=== PATIENT | female | born 1990 | race Caucasian/White ===

== ENCOUNTER 2017-06-29 06:39 | Emergency (ER) | payer BC ==
[2017-06-29 07:02] VITALS: BP 108/65
--- NOTE | 2017-06-29 07:07 | EDM.PDOC ---
ED HPI GENERAL MEDICAL PROBLEM - General Chief Complaint: Abdominal Pain Stated Complaint: ABDOMINAL PAIN/19 WKS PG Time Seen by Provider: 06/29/17 07:06 - History of Present Illness INITIAL COMMENTS - FREE TEXT/NARRATIVE: 26-year-old female presents emergency room with abdominal pain. She is 19 weeks by history. Patient had abdominal pain started unprovoked around midnight. She got up try to go to the bathroom with no success. She describes the pain is crampy in nature. She has associated nausea no vomiting. She has not had any fevers chills. She has not had any burning or frequency with urination. She awoke again around 5 AM had the same pain. With associated nausea. The pain is crampy in nature. The patient has not had any unusual vaginal discharge. No burning or frequency of urination. Patient is a 2 para 1. She gets her care in [place]. Past surgical history is significant for an appendectomy at age 12. 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 Denies: Fever, Chills HEENT: Reports: No Symptoms Respiratory: Reports: No Symptoms Cardiovascular: Reports: No Symptoms GI/Abdominal: Reports: Abdominal Pain, Nausea, Other (The patient isn't sure if she is having problems constipation at this point). Denies: Diarrhea, Vomiting : Reports: No Symptoms Musculoskeletal: Reports: No Symptoms Skin: Reports: No Symptoms Neurological: Reports: No Symptoms Psychiatric: Reports: No Symptoms ED EXAM, GI/ABD - Physical Exam Exam: See Below Exam Limited By: No Limitations General Appearance: Alert, No Apparent Distress Head: Atraumatic, Normocephalic Neck: Normal Inspection, Supple, Non-Tender, Full Range of Motion Respiratory/Chest: No Respiratory Distress, Lungs Clear, Normal Breath Sounds Cardiovascular: Normal Peripheral Pulses, Regular Rate, Rhythm, No Edema GI/Abdominal Exam: Normal Bowel Sounds, Soft, Other (Patient has lower abdominal tenderness worse in the left compared to the right. No rigidity no rebound or guarding. Fundus palpates to dates the pain seems to be more lateral then interuterine. heart tones were audible by nursing at 150 bpm by Doppler). No: Guarding, Rigid, Rebound Course - Vital Signs Last Recorded V/S: Last Vital Signs Temp 36.9 C 06/29/17 06:59 Pulse 86 06/29/17 06:59 Resp 16 06/29/17 06:59 BP 108/65 06/29/17 06:59 Pulse Ox 100 06/29/17 06:59 - Orders/Labs/Meds Orders: Active Orders 24 hr Category Date Time Status CULTURE URINE [RM] Stat Lab 06/29/17 08:30 Received Labs: Laboratory Tests 06/29/17 06/29/17 06/29/17 Range/Units 07:20 07:20 07:20 WBC 9.70 (3.98-10.04) K/mm3 RBC 4.00 (3.98-5.22) M/mm3 Hgb 11.6 (11.2-15.7) gm/L Hct 33.7 L (34.1-44.9) % MCV 84.3 (79.4-94.8) fl MCH 29.0 (25.6-32.2) pg MCHC 34.4 (32.2-35.5) g/dl RDW Std Deviation 43.0 (36.4-46.3) fL Plt Count 239 (182-369) K/mm3 MPV 9.0 L (9.4-12.3) fl Neutrophils % (Manual) 38 L (40-60) % Band Neutrophils % 0 (0-10) % Lymphocytes % (Manual) 53 H (20-40) % Atypical Lymphs % 0 % Monocytes % (Manual) 8 (2-10) % Eosinophils % (Manual) 1 (0.7-5.8) % Basophils % (Manual) 0 L (0.1-1.2) Platelet Estimate Adequate RBC Morph Comment Normal Sodium 137 (136-145) mEq/L Potassium 3.8 (3.5-5.1) mEq/L Chloride 103 (98-107) mEq/L Carbon Dioxide 24 (21-32) mEq/L Anion Gap 13.8 (5-15) BUN 8 (7-18) mg/dL Creatinine 0.4 L (0.55-1.02) mg/dL Est Cr Clr Drug Dosing 213.11 mL/min Estimated GFR (MDRD) > 60 (>60) mL/min BUN/Creatinine Ratio 20.0 H (14-18) Glucose 89 (74-106) mg/dL Calcium 8.3 L (8.5-10.1) mg/dL Total Bilirubin 0.2 (0.2-1.0) mg/dL AST 53 H (15-37) U/L ALT 78 H (14-59) U/L Alkaline Phosphatase 42 L (46-116) U/L C-Reactive Protein 0.6 (<1.0) mg/dL Total Protein 7.0 (6.4-8.2) g/dl Albumin 3.0 L (3.4-5.0) g/dl Globulin 4.0 gm/dL Albumin/Globulin Ratio 0.8 L (1-2) Lipase 160 (73-393) U/L HCG, Quant 7672.0 mIU/mL Urine Color (Yellow) Urine Appearance (Clear) Urine pH (5.0-8.0) Ur Specific Chapman (1.005-1.030) Urine Protein (Negative) Urine Glucose (UA) (Negative) Urine Ketones (Negative) Urine Occult Blood (Negative) Urine Nitrite (Negative) Urine Bilirubin (Negative) Urine Urobilinogen (0.2-1.0) Ur Leukocyte Esterase (Negative) Urine RBC (0-5) /hpf Urine WBC (0-5) /hpf Ur Epithelial Cells (0-5) /hpf Urine Bacteria (FEW) /hpf Urine Mucus (FEW) /hpf Blood Type Gel Antibody Screen 06/29/17 06/29/17 Range/Units 07:20 08:30 WBC (3.98-10.04) K/mm3 RBC (3.98-5.22) M/mm3 Hgb (11.2-15.7) gm/L Hct (34.1-44.9) % MCV (79.4-94.8) fl MCH (25.6-32.2) pg MCHC (32.2-35.5) g/dl RDW Std Deviation (36.4-46.3) fL Plt Count (182-369) K/mm3 MPV (9.4-12.3) fl Neutrophils % (Manual) (40-60) % Band Neutrophils % (0-10) % Lymphocytes % (Manual) (20-40) % Atypical Lymphs % % Monocytes % (Manual) (2-10) % Eosinophils % (Manual) (0.7-5.8) % Basophils % (Manual) (0.1-1.2) Platelet Estimate RBC Morph Comment Sodium (136-145) mEq/L Potassium (3.5-5.1) mEq/L Chloride (98-107) mEq/L Carbon Dioxide (21-32) mEq/L Anion Gap (5-15) BUN (7-18) mg/dL Creatinine (0.55-1.02) mg/dL Est Cr Clr Drug Dosing mL/min Estimated GFR (MDRD) (>60) mL/min BUN/Creatinine Ratio (14-18) Glucose (74-106) mg/dL Calcium (8.5-10.1) mg/dL Total Bilirubin (0.2-1.0) mg/dL AST (15-37) U/L ALT (14-59) U/L Alkaline Phosphatase (46-116) U/L C-Reactive Protein (<1.0) mg/dL Total Protein (6.4-8.2) g/dl Albumin (3.4-5.0) g/dl Globulin gm/dL Albumin/Globulin Ratio (1-2) Lipase (73-393) U/L HCG, Quant mIU/mL Urine Color Yellow (Yellow) Urine Appearance Clear (Clear) Urine pH 8.0 (5.0-8.0) Ur Specific Chapman 1.015 (1.005-1.030) Urine Protein Negative (Negative) Urine Glucose (UA) Negative (Negative) Urine Ketones Negative (Negative) Urine Occult Blood Negative (Negative) Urine Nitrite Negative (Negative) Urine Bilirubin Negative (Negative) Urine Urobilinogen 0.2 (0.2-1.0) Ur Leukocyte Esterase Trace H (Negative) Urine RBC Not seen (0-5) /hpf Urine WBC 0-5 (0-5) /hpf Ur Epithelial Cells 0-5 (0-5) /hpf Urine Bacteria Many H (FEW) /hpf Urine Mucus Few (FEW) /hpf Blood Type A NEGATIVE Gel Antibody Screen Negative Meds: Medications Discontinued Medications Generic Name Dose Route Start Last Admin Trade Name Freq PRN Reason Stop Dose Admin Lactated Ringer's 1,000 mls @ 999 mls/hr 06/29/17 07:14 06/29/17 07:26 Ringers, Lactated IV 06/29/17 08:14 999 mls/hr .BOLUS ONE Administration - Re-Assessments/Exams Free Text/Narrative Re-Assessment/Exam: 06/29/17 09:45 ultrasound is consistent with dates, 18.4-19 weeks. heart tones 156 bpm cervical length 3.3 cm. Labs nondiagnostic more of a lymphocytic shift slight elevation of her transaminases negative proteinuria. At this point Dr. Pantoja did get back to us reviewed her physical findings ultrasound report and labs. It would be unlikely to have a HELLP syndrome developing. Urinalysis is suggestive of a possible early UTI we'll start her on Macrobid. Patient understands in no uncertain terms return to the emergency room with any questions or problems she'll be started on Macrobid culture pending Departure - Departure Time of Disposition: 09:56 Disposition: Home, Self-Care 01 Clinical Impression: Abdominal pain of unknown cause, UTI (urinary tract infection), Second trimester - Discharge Information Prescriptions: Nitrofurantoin Monohyd/M-Cryst [Macrobid 100 mg Capsule] 100 mg PO Q12H #14 capsule Instructions: Abdominal Pain, Adult, Urinary Tract Infection, Adult Referrals: Adelaide Christianson MD [Primary Care Provider] - Forms: ED Department Discharge Additional Instructions: Return to the emergency room with any questions problems worsening symptoms. Follow-up with your regular physician tomorrow or . Fluid and soft diet, push fluids. Drink enough fluids that your voiding every hour to hour and a half while awake. - My Orders Last 24 Hours: My Active Orders 06/29/17 08:30 CULTURE URINE [RM] Stat - Assessment/Plan Last 24 Hours: My Active Orders 06/29/17 08:30 CULTURE URINE [] Stat
[2017-06-29] MEDS ORDERED: Lactated Ringers 1,000 ML IV ONE (07:14)
--- NOTE | 2017-06-29 08:34 | US ---
Limited obstetrical ultrasound: Multiple real-time images were obtained. Comparison: No prior obstetrical ultrasound for current . Dates: LMP: LMP given as 02/15/17, TRE 11/22/17, gestational age 19 weeks 1 day Current ultrasound: TRE 11/25/17, gestational age 18 weeks 5 days presentation: Cephalic Placenta: Anterior with no findings of placenta previa or abruption. Amniotic fluid: GENESIS 9.54 cm Maternal adnexa: Within normal limits Measurements: BPD: 4.1 cm - 18 weeks 4 days Head circumference: 15.54 cm - 18 weeks 4 days Abdominal circumference: 13.46 cm - 19 weeks 0 days Femur length: 2.78 cm - 18 weeks 4 days Estimated weight: 253 g (0 lbs. 9 oz.), estimated weight at the 44th percentile for age by current ultrasound Heart rate: 156 BPM Cervical length: 3.3 cm Other findings: Additional imaging was obtained in area described as area of patient's pain which shows bowel without other abnormality. Impression: 1. Single intrauterine fetus. Dates as noted above. 2. No complicating process is seen by ultrasound at this time. Note: No anatomic survey was performed
== END 2017-06-29 10:09 | disposition home or self-care (01) ==
LOC: JD.ED 06:39
DX: O23.42 Unspecified infection of urinary tract in pregnancy, second trimester (principal); Z3A.18 18 weeks gestation of pregnancy; Z87.891 Personal history of nicotine dependence
CPT/HCPCS: 36415; 76815; 80053; 81001; 83690; 84702; 85025; 86140; 86850; 86900; 86901; 87086; 96360; 99284; J7120; 87088; 99283

== ENCOUNTER 2019-05-18 06:50 | Inpatient (IN) | payer BC ==
[~2019-05-18 06:50] MED LIST: Bupivacaine 0.25% 10 ML SDV ONE
[2019-05-18] MEDS ORDERED: Nalbuphine 10 MG/ML Syringe IVPUSH PRN (06:59)
[2019-05-18] MEDS ORDERED: Sodium Chloride 0.9% 10 ML Syringe FLUSH PRN (06:59)
[2019-05-18] MEDS ORDERED: Ondansetron 4 MG/2 ML SDV IVPUSH PRN ×2 (06:59→12:02)
[2019-05-18] MEDS ORDERED: Oxytocin/Lactated Ringers 10 UNIT/1,000 ML BAG IV SCH ×2 (07:00)
--- NOTE | 2019-05-18 07:03 | PCM.LDHP ---
L&D History of Present Illness - General Date of Service: 05/18/19 Admit Problem/Dx: Patient Status Order with Admit Dx/Problem 05/18/19 07:00 Patient Status [ADT] Routine Admission Diagnosis/Problem Admission Diagnosis/Problem Normal in third trimester Source of Information: Patient History Limitations: Reports: No Limitations - History of Present Illness Introduction:: Patient is a 28 y/o at 40 5/7 wks who presents for IOL. Doing well today. Notes good FM. 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: 2 LMP (Approximate): - Past Surgical History GI Surgical History: Reports: Appendectomy Social & Family History - Tobacco Use Smoking Status *Q: Former Smoker - Alcohol Use Alcohol Use History: No - Recreational Drug Use Recreational Drug Use: No H&P Review of Systems - Review of Systems: Review Of Systems: See Below General: Reports: No Symptoms Pulmonary: Reports: No Symptoms Cardiovascular: Reports: No Symptoms Gastrointestinal: Reports: No Symptoms Genitourinary: Reports: No Symptoms Musculoskeletal: Reports: No Symptoms Skin: Reports: No Symptoms Psychiatric: Reports: No Symptoms Neurological: Reports: No Symptoms L&D Exam - Exam Exam: See Below - OB Specific Contraction Intensity: Irritability Movement: Active Heart Tones: Present Heart Tones per Min: 130 Heart Rate (FHR) Variability: Moderate (6-25 bmp) Presentation: Vertex - Cronin Score Cronin Score Cervix Position: Midposition Cronin Score Consistency: Soft Cronin Score Effacement: 51-70% Cronin Score Dilation: 3-4 cm Cronin Score Infant's Station: -2 Cronin Score Total: 8 - Exam General: Alert, Oriented, Cooperative Lungs: Clear to Auscultation, Normal Respiratory Effort Cardiovascular: Regular Rate, Regular Rhythm GI/Abdominal Exam: Soft, Non-Tender Genitourinary: Normal external exam Extremities: Normal Inspection Skin: Warm, Dry, Intact - Patient Data Result Diagrams: 05/18/19 08:00 - Problem List (1) Post-dates SNOMED Code(s): 84082041 ICD Code: O48.0 - POST-TERM Status: Acute Current Visit: Yes Qualifiers: Post-term type: 40-42 weeks gestation Qualified Code(s): O48.0 - Post-term (2) Rh negative state in antepartum period SNOMED Code(s): 788485320 ICD Code: O26.899 - OTH RELATED CONDITIONS, UNSPECIFIED TRIMESTER; Z67.91 - UNSPECIFIED BLOOD TYPE, RH NEGATIVE Status: Acute Current Visit: Yes Problem List Initiated/Reviewed/Updated: Yes Orders Last 24hrs: Active Orders 24 hr Category Date Time Status Patient Status [ADT] Routine ADT 05/18/19 07:00 Ordered Activity as Tolerated [RC] PFP Care 05/18/19 07:00 Ordered Communication Order [RC] ASDIRECTED Care 05/18/19 07:00 Ordered Communication Order [RC] ASDIRECTED Care 05/18/19 07:00 Ordered Communication Order [RC] ASDIRECTED Care 05/18/19 07:00 Ordered Heart Tones [RC] ASDIRECTED Care 05/18/19 07:00 Ordered Monitoring [RC] INTERMITTENT Care 05/18/19 07:00 Ordered Non Stress Test [RC] PER UNIT ROUTINE Care 05/18/19 07:00 Ordered Notify Provider [RC] ASDIRECTED Care 05/18/19 07:00 Ordered Notify Provider [RC] PRN Care 05/18/19 07:00 Ordered Peripheral IV Care [RC] . DIRECTED Care 05/18/19 07:00 Ordered Vaginal Exam [RC] ASDIRECTED Care 05/18/19 07:00 Ordered Vital Signs [RC] ASDIRECTED Care 05/18/19 07:00 Ordered Regular Diet [DIET] Diet 05/18/19 Breakfast Ordered CBC W/O DIFF,HEMOGRAM [HEME] Routine Lab 05/18/19 06:59 Ordered RAPID PLASMA REAGIN,RPR [CHEM] Routine Lab 05/18/19 07:00 Ordered TYPE AND SCREEN [BBK] Routine Lab 05/18/19 06:59 Ordered Lactated Ringers [Ringers, Lactated] 1,000 ml Med 05/18/19 07:00 Ordered IV ASDIRECTED Nalbuphine [Nubain] Med 05/18/19 06:59 Ordered 10 mg IVPUSH Q2H PRN Ondansetron [Zofran] Med 05/18/19 06:59 Ordered 4 mg IVPUSH Q4H PRN Oxytocin/Lactated Ringers [Pitocin in LR 10 Units/1,000 Med 05/18/19 07:00 Ordered ML] 10 unit in 1,000 ml IV .CONTINUOUS Oxytocin/Lactated Ringers [Pitocin in LR 10 Units/1,000 Med 05/18/19 07:00 Ordered ML] 10 unit in 1,000 ml IV TITRATE Sodium Chloride 0.9% [Saline Flush] Med 05/18/19 06:59 Ordered 10 ml FLUSH ASDIRECTED PRN Electronic Heart Tones Ext w TOCO [WOMSER] Oth 05/18/19 07:00 Ordered Routine Electronic Heart Tones Internal [WOMSER] Per Unit Ot 05/18/19 07:00 Ordered Routine Peripheral IV Insertion Adult [OM.PC] Routine Ot 05/18/19 07:00 Ordered Assessment/Plan Comment:: 28 y/o at 40 5/7 wks presents for IOL * Labs done * GBS negative, no need for antibiotics * Pitocin to be started, AROM when able * Pain management per patient preference * Anticipate
[2019-05-18] MEDS: Lactated Ringers 1,000 ML IV SCH ×2 (07:30→12:26)
[2019-05-18] MEDS ORDERED: fentaNYL/Bupivacaine/NS 2 MCG-0.125% 250 ML EPIDUR PRN (12:02)
[2019-05-18] MEDS ORDERED: fentaNYL 100 MCG/2 ML SDV EPIDUR PRN (12:02)
[2019-05-18] MEDS ORDERED: ePHEDrine 50 MG/ML SDV IVPUSH PRN (12:02)
--- NOTE | 2019-05-18 12:05 | PCM.PREANE ---
Preanesthetic Assessment - Anesthesia/Transfusion/Family Hx Anesthesia History: Prior Anesthesia Without Reaction Family History of Anesthesia Reaction: No Transfusion History: No Prior Transfusion(s) Intubation History: Unknown - Review of Systems General: No Symptoms Pulmonary: No Symptoms Cardiovascular: No Symptoms Gastrointestinal: No Symptoms (GERD with ), Constipation Neurological: No Symptoms Other: Reports: Easy Bruising, Depression, Anxiety - Physical Assessment NPO Status Date: 05/18/19 NPO Status Time: 10:00 Vital Signs: Last Vital Signs Temp 36.4 C 05/18/19 07:00 Pulse 85 05/18/19 08:30 Resp 16 05/18/19 07:00 BP 86/68 L 05/18/19 08:30 Pulse Ox Height: 1.75 m Weight: 75.296 kg ASA Class: 2 Mental Status: Alert & Oriented x3 Airway Class: Mallampati = 2 Dentition: Reports: Normal Dentition, Caries Thyro-Mental Finger Breadths: 3 Mouth Opening Finger Breadths: 3 ROM/Head Extension: Full Lungs: Clear to Auscultation, Normal Respiratory Effort Cardiovascular: Regular Rate, Regular Rhythm, No Murmurs - Lab Values: Laboratory Last Values WBC 8.07 K/mm3 (3.98-10.04) 05/18/19 08:00 RBC 4.18 M/mm3 (3.98-5.22) 05/18/19 08:00 Hgb 12.3 gm/dl (11.2-15.7) 05/18/19 08:00 Hct 36.4 % (34.1-44.9) 05/18/19 08:00 MCV 87.1 fl (79.4-94.8) 05/18/19 08:00 MCH 29.4 pg (25.6-32.2) 05/18/19 08:00 MCHC 33.8 g/dl (32.2-35.5) 05/18/19 08:00 RDW Std Deviation 41.9 fL (36.4-46.3) 05/18/19 08:00 Plt Count 242 K/mm3 (182-369) 05/18/19 08:00 MPV 10.3 fl (9.4-12.3) 05/18/19 08:00 Above labs reviewed and noted and within acceptable ranges to proceed with epidural. - Allergies Allergies/Adverse Reactions: Allergies Allergy/AdvReac Type Severity Reaction Status Date / Time No Known Allergies Allergy Verified 06/29/17 06:59 - Anesthesia Plan Pre-Op Medication Ordered: None - Acknowledgements Anesthesia Type Planned: Epidural Pt an Appropriate Candidate for the Planned Anesthesia: Yes Alternatives and Risks of Anesthesia Discussed w Pt/Guardian: Yes Pt/Guardian Understands and Agrees with Anesthesia Plan: Yes PreAnesthesia Questionnaire - Past Health History Medical/Surgical History: Denies Medical/Surgical History Gastrointestinal History: Reports: None [place] History: Reports: Other OB/BYN History: vaginal delivery - Past Surgical History GI Surgical History: Reports: Appendectomy - SUBSTANCE USE Smoking Status *Q: Former Smoker Tobacco Use Within Last Twelve Months: No Recreational Drug Use History: No - HOME MEDS Home Medications: Home Meds No122/Iron/Folic Acid [ Multi Tablet] 1 tab PO DAILY 09/12/15 [ History] - CURRENT (IN HOUSE) MEDS Current Meds: Current Medications Lactated Ringer's (Ringers, Lactated) 1,000 mls @ 40 mls/hr IV ASDIRECTED LINNETTE Last Admin: 05/18/19 07:30 Dose: 40 mls/hr Oxytocin/Lactated Ringer's (Pitocin In Lr 10 Units/1,000 Ml) 10 unit in 1,000 mls @ 12 mls/hr IV TITRATE LINNETTE; Protocol Last Titration: 05/18/19 10:30 Dose: 10 munits/min, 60 mls/hr Oxytocin/Lactated Ringer's (Pitocin In Lr 10 Units/1,000 Ml) 10 unit in 1,000 mls @ 500 mls/hr IV .CONTINUOUS LINNETTE Nalbuphine HCl (Nubain) 10 mg IVPUSH Q2H PRN PRN Reason: Pain Ondansetron HCl (Zofran) 4 mg IVPUSH Q4H PRN PRN Reason: Nausea/Vomiting Sodium Chloride (Saline Flush) 10 ml FLUSH ASDIRECTED PRN PRN Reason: Keep Vein Open
--- NOTE | 2019-05-18 14:41 | PCM.DEL ---
L & D Note - General Info Date of Service: 05/18/19 - Delivery Note Labor: Induced by ARM, Induced by Oxytocin Delivery Outcome: Livebirth Infant Delivery Method: Spontaneous Vaginal Delivery-Single Infant Delivery Mode: Spontaneous Presentation: Right Occiput Anterior (MARÍA) Nuchal Cord: None Anesthesia Type: Epidural Amniotic Fluid Description: Clear Episiotomy Type: None Laceration: None Placenta: Intact, Spontaneous Cord: 3 Vessels Estimated Blood Loss: 100 Unity: Bulb Syringe, Stimulated, Warmed, Palm Used, Warmer Used Delivery Comments (Free Text/Narrative):: Patient found to be complete and began pushing. With maternal pushing effort head delivered from an MARÍA presentation. No nuchal cord present. With gentle downward traction the shoulders and body delivered. placed on maternal abdomen. Cord clamped and cut. Cord blood obtained. Placenta allowed time to separate and expelled intact. Inspection of the perineum showed no lacerations. - General Info Date of Service: 05/18/19 - Patient Data Vitals - Most Recent: Last Vital Signs Temp 36.4 C 05/18/19 07:00 Pulse 85 05/18/19 08:30 Resp 16 05/18/19 07:00 BP 86/68 L 05/18/19 08:30 Pulse Ox Weight - Most Recent: 75.296 kg - Problem List & Annotations (1) Post-dates SNOMED Code(s): 46611385 Code(s): O48.0 - POST-TERM Status: Acute Current Visit: Yes Qualifiers: Post-term type: 40-42 weeks gestation Qualified Code(s): O48.0 - Post-term (2) Rh negative state in antepartum period SNOMED Code(s): 580925455 Code(s): O26.899 - OTH RELATED CONDITIONS, UNSPECIFIED TRIMESTER; Z67.91 - UNSPECIFIED BLOOD TYPE, RH NEGATIVE Status: Acute Current Visit: Yes (3) Vaginal delivery SNOMED Code(s): 763870259 Code(s): O80 - ENCOUNTER FOR FULL-TERM UNCOMPLICATED DELIVERY Status: Acute Current Visit: Yes - Problem List Review Problem List Initiated/Reviewed/Updated: Yes - My Orders Last 24 Hours: My Active Orders 05/18/19 06:59 Nalbuphine [Nubain] 10 mg IVPUSH Q2H PRN Ondansetron [Zofran] 4 mg IVPUSH Q4H PRN Sodium Chloride 0.9% [Saline Flush] 10 ml FLUSH ASDIRECTED PRN 05/18/19 07:00 Patient Status [ADT] Routine Activity as Tolerated [RC] PFP Communication Order [RC] ASDIRECTED Communication Order [RC] ASDIRECTED Communication Order [RC] ASDIRECTED Heart Tones [RC] ASDIRECTED Monitoring [RC] INTERMITTENT Notify Provider [RC] ASDIRECTED Notify Provider [RC] PRN Vital Signs [RC] ASDIRECTED Lactated Ringers [Ringers, Lactated] 1,000 ml IV ASDIRECTED Oxytocin/Lactated Ringers [Pitocin in LR 10 Units/1,000 ML] 10 unit in 1,000 ml IV .CONTINUOUS Oxytocin/Lactated Ringers [Pitocin in LR 10 Units/1,000 ML] 10 unit in 1,000 ml IV TITRATE Electronic Heart Tones Ext w TOCO [WOMSER] Routine Electronic Heart Tones Internal [WOMSER] Per Unit Routine Peripheral IV Insertion Adult [OM.PC] Routine 05/18/19 07:19 Code Status [Resuscitation Status] Routine 05/18/19 08:00 RAPID PLASMA REAGIN,RPR [CHEM] Routine TYPE AND SCREEN [BBK] Routine 05/18/19 Breakfast Regular Diet [DIET] - Assessment Assessment:: 28 y/o G3 now P3003 PPD#0 from at 40 5/7 wks - Plan Plan:: * Routine cares * Breast feeding * Discharge in 1-2 days
[2019-05-18] MEDS ORDERED: Witch Hazel Medicated Pads 40/Jar TOP PRN (14:58)
[2019-05-18] MEDS ORDERED: Acetaminophen 325 MG Tab PO PRN (14:58)
[2019-05-18] MEDS ORDERED: Docusate Sodium 100 MG Cap PO PRN (14:58)
[2019-05-18] MEDS ORDERED: Benzocaine/Menthol 20%-0.5% Spray 56 GM Canister TOP PRN (14:58)
[2019-05-18] MEDS ORDERED: Ibuprofen 600 MG Tab PO PRN (14:58)
--- NOTE | 2019-05-19 07:42 | PCM.PNPP ---
- General Info Date of Service: 05/19/19 Functional Status: Reports: Pain Controlled, Tolerating Diet, Ambulating, Urinating - Review of Systems General: Reports: No Symptoms Pulmonary: Reports: No Symptoms Cardiovascular: Reports: No Symptoms Gastrointestinal: Reports: No Symptoms Genitourinary: Reports: No Symptoms Musculoskeletal: Reports: No Symptoms Neurological: Reports: No Symptoms - Patient Data Vital Signs - Most Recent: Last Vital Signs Temp 36.4 C 05/18/19 07:00 Pulse 74 05/19/19 03:00 Resp 16 05/19/19 03:00 BP 102/54 L 05/19/19 03:00 Pulse Ox 100 05/19/19 03:00 Weight - Most Recent: 75.296 kg I&O - Last 24 Hours: Intake & Output 05/18/19 05/19/19 05/19/19 22:59 06:59 14:59 Intake Total 60 Balance 60 Lab Results - Last 24 Hours: Laboratory Results - last 24 hr 05/18/19 05/18/19 05/18/19 Range/Units 08:00 08:00 08:00 WBC 8.07 (3.98-10.04) K/mm3 RBC 4.18 (3.98-5.22) M/mm3 Hgb 12.3 (11.2-15.7) gm/dl Hct 36.4 (34.1-44.9) % MCV 87.1 (79.4-94.8) fl MCH 29.4 (25.6-32.2) pg MCHC 33.8 (32.2-35.5) g/dl RDW Std Deviation 41.9 (36.4-46.3) fL Plt Count 242 (182-369) K/mm3 MPV 10.3 (9.4-12.3) fl RPR Non-reactive (NONREACTIVE) Blood Type A NEGATIVE Gel Antibody Screen Negative Med Orders - Current: Current Medications Acetaminophen (Tylenol) 650 mg PO Q4H PRN PRN Reason: mild pain or fever Benzocaine/Menthol (Dermoplast Pain Relief [place]) 0 gm TOP ASDIRECTED PRN PRN Reason: Perineal Comfort Measure Docusate Sodium (Colace) 100 mg PO BID PRN PRN Reason: Constipation Ibuprofen (Motrin) 600 mg PO Q6H PRN PRN Reason: Mild pain or fever Last Admin: 05/18/19 21:56 Dose: 600 mg Witch Lilia (Tucks) 1 pad TOP ASDIRECTED PRN PRN Reason: Perineal Comfort Measure Discontinued Medications Ephedrine Sulfate (Ephedrine Sulfate) 5 mg IVPUSH ASDIRECTED PRN PRN Reason: Hypotension Fentanyl (Sublimaze) 100 mcg EPIDUR Q3H PRN PRN Reason: Pain Last Admin: 05/18/19 12:17 Dose: 100 mcg Fentanyl/Bupivacaine HCl (Fentanyl/Bupivacaine/Ns 2 Mcg-0.125% 250 Ml) 250 ml EPIDUR CONTINUOUS PRN PRN Reason: Pain Last Admin: 05/18/19 12:17 Dose: 250 ml Lactated Ringer's (Ringers, Lactated) 1,000 mls @ 40 mls/hr IV ASDIRECTED LINNETTE Last Admin: 05/18/19 12:26 Dose: 999 mls/hr Oxytocin/Lactated Ringer's (Pitocin In Lr 10 Units/1,000 Ml) 10 unit in 1,000 mls @ 12 mls/hr IV TITRATE LINNETTE; Protocol Last Titration: 05/18/19 14:30 Dose: 500 mls/hr Oxytocin/Lactated Ringer's (Pitocin In Lr 10 Units/1,000 Ml) 10 unit in 1,000 mls @ 500 mls/hr IV .CONTINUOUS LINNETTE Nalbuphine HCl (Nubain) 10 mg IVPUSH Q2H PRN PRN Reason: Pain Ondansetron HCl (Zofran) 4 mg IVPUSH Q4H PRN PRN Reason: Nausea/Vomiting Ondansetron HCl (Zofran) 4 mg IVPUSH ONETIME PRN PRN Reason: Nausea/Vomiting Sodium Chloride (Saline Flush) 10 ml FLUSH ASDIRECTED PRN PRN Reason: Keep Vein Open - Infant Interaction Disposition, : [place] in Room with Family Interaction: Holding Infant Infant Feeding: Breastfed Infant; Nursed Well Support Person: - Recovery Exam Fundal Tone: Firm Fundal Level: 1 Fingerbreadths Below Umbilicus Fundal Placement: Midline Lochia Amount: Small Lochia Color: Rubra/Red Perineum Description: Intact, Minimal Bruising/Swelling Bladder Status: Voiding Urinary Elimination: Voided - Exam General: Alert, Oriented, Cooperative GI/Abdominal Exam: Soft, Non-Tender Extremities: Normal Inspection Skin: Warm, Dry, Intact - Problem List & Annotations (1) Post-dates SNOMED Code(s): 86363470 Code(s): O48.0 - POST-TERM Status: Acute Current Visit: Yes Qualifiers: Post-term type: 40-42 weeks gestation Qualified Code(s): O48.0 - Post-term (2) Rh negative state in antepartum period SNOMED Code(s): 953792748 Code(s): O26.899 - H RELATED CONDITIONS, UNSPECIFIED TRIMESTER; Z67.91 - UNSPECIFIED BLOOD TYPE, RH NEGATIVE Status: Acute Current Visit: Yes (3) Vaginal delivery SNOMED Code(s): 359463294 Code(s): O80 - ENCOUNTER FOR FULL-TERM UNCOMPLICATED DELIVERY Status: Acute Current Visit: Yes - Problem List Review Problem List Initiated/Reviewed/Updated: Yes - My Orders Last 24 Hours: My Active Orders 05/18/19 07:00 Monitoring [RC] INTERMITTENT 05/18/19 07:19 Code Status [Resuscitation Status] Routine 05/18/19 14:58 Activity as Tolerated [RC] PER UNIT ROUTINE Vital Signs [RC] 03,09,15,21 Acetaminophen [Tylenol] 650 mg PO Q4H PRN Benzocaine/Menthol [Dermoplast Pain Relief [place]] See Dose Instructions TOP ASDIRECTED PRN Docusate Sodium [Colace] 100 mg PO BID PRN Ibuprofen [Motrin] 600 mg PO Q6H PRN Witch Lilia [Tucks] 1 pad TOP ASDIRECTED PRN Assess Lochia [WOMSER] Per Unit Routine Assess Uterine Involution [WOMSER] Per Unit Routine Breast Pump [WOMSER] Per Unit Routine Heat Therapy [OM.PC] PRN Ice Therapy [OM.PC] Per Unit Routine Perineal Care [OM.PC] Per Unit Routine Peripheral IV Discontinue [OM.PC] Routine Sitz Bath [OM.PC] Per Unit Routine 05/18/19 Dinner Regular Diet [DIET] 05/19/19 14:58 Heat Therapy [OM.PC] PRN - Assessment Assessment:: 28 y/o G3 now P3003 PPD#1 from at 40 5/7 wks - Plan Plan:: * Routine cares * Breast feeding * Discharge today
--- NOTE | 2019-05-19 08:15 | PCM.DCSUM1 ---
Discharge Summary - Discharge Data Discharge Date: 05/19/19 Discharge Disposition: Home, Self-Care 01 Condition: Good - Referral to Home Health Primary Care Physician: Marcella Gill MD - Discharge Diagnosis/Problem(s) (1) Post-dates SNOMED Code(s): 57100829 ICD Code: O48.0 - POST-TERM Status: Acute Current Visit: Yes Qualifiers: Post-term type: 40-42 weeks gestation Qualified Code(s): O48.0 - Post-term (2) Rh negative state in antepartum period SNOMED Code(s): 537415050 ICD Code: O26.899 - OTH RELATED CONDITIONS, UNSPECIFIED TRIMESTER; Z67.91 - UNSPECIFIED BLOOD TYPE, RH NEGATIVE Status: Acute Current Visit: Yes (3) Vaginal delivery SNOMED Code(s): 883274830 ICD Code: O80 - ENCOUNTER FOR FULL-TERM UNCOMPLICATED DELIVERY Status: Acute Current Visit: Yes - Patient Summary/Data Complications: None Consults: None Recommended Follow-up Testing/Procedures: Follow up in 2-6 weeks for check Hospital Course: 28 y/o at 40 5/7 wks who presented for IOL. This was done with pitocin and AROM. She progressed well to complete dilation and underwent an uncomplicated . See delivery note. she did well and was discharged home on PPD#1 - Patient Instructions Diet: Regular Diet as Tolerated Activity: As Tolerated Activity, Other: Pelvic rest for 6 weeks Driving: May Drive Today Showering/Bathing: May Shower Showering/Bathing, Other: May bathe Notify Provider of: Fever, Increased Pain, Swelling and Redness, Drainage, Nausea and/or Vomiting - Discharge Plan *PRESCRIPTION DRUG MONITORING PROGRAM REVIEWED*: No *COPY OF PRESCRIPTION DRUG MONITORING REPORT IN PATIENT WILFRED: No Home Medications: Home Meds No122/Iron/Folic Acid [ Multi Tablet] 1 tab PO DAILY 09/12/15 [ History] Ibuprofen [Motrin] 600 mg PO Q6H PRN tablet 05/19/19 [Rx] Referrals: Marcella Gill MD [Primary Care Provider] - (2-6 weeks for check) - Discharge Summary/Plan Comment DC Time >30 min.: No - Patient Data Vitals - Most Recent: Last Vital Signs Temp 36.4 C 05/18/19 07:00 Pulse 74 05/19/19 03:00 Resp 16 05/19/19 03:00 BP 102/54 L 05/19/19 03:00 Pulse Ox 100 05/19/19 03:00 Weight - Most Recent: 75.296 kg I&O - Last 24 hours: Intake & Output 05/18/19 05/19/19 05/19/19 22:59 06:59 14:59 Intake Total 60 Balance 60 Lab Results - Last 24 hrs: Laboratory Results - last 24 hr 05/18/19 05/18/19 05/18/19 Range/Units 08:00 08:00 08:00 WBC 8.07 (3.98-10.04) K/mm3 RBC 4.18 (3.98-5.22) M/mm3 Hgb 12.3 (11.2-15.7) gm/dl Hct 36.4 (34.1-44.9) % MCV 87.1 (79.4-94.8) fl MCH 29.4 (25.6-32.2) pg MCHC 33.8 (32.2-35.5) g/dl RDW Std Deviation 41.9 (36.4-46.3) fL Plt Count 242 (182-369) K/mm3 MPV 10.3 (9.4-12.3) fl RPR Non-reactive (NONREACTIVE) Blood Type A NEGATIVE Gel Antibody Screen Negative Med Orders - Current: Current Medications Acetaminophen (Tylenol) 650 mg PO Q4H PRN PRN Reason: mild pain or fever Benzocaine/Menthol (Dermoplast Pain Relief [place]) 0 gm TOP ASDIRECTED PRN PRN Reason: Perineal Comfort Measure Docusate Sodium (Colace) 100 mg PO BID PRN PRN Reason: Constipation Ibuprofen (Motrin) 600 mg PO Q6H PRN PRN Reason: Mild pain or fever Last Admin: 05/18/19 21:56 Dose: 600 mg Witch Lilia (Tucks) 1 pad TOP ASDIRECTED PRN PRN Reason: Perineal Comfort Measure Discontinued Medications Ephedrine Sulfate (Ephedrine Sulfate) 5 mg IVPUSH ASDIRECTED PRN PRN Reason: Hypotension Fentanyl (Sublimaze) 100 mcg EPIDUR Q3H PRN PRN Reason: Pain Last Admin: 05/18/19 12:17 Dose: 100 mcg Fentanyl/Bupivacaine HCl (Fentanyl/Bupivacaine/Ns 2 Mcg-0.125% 250 Ml) 250 ml EPIDUR CONTINUOUS PRN PRN Reason: Pain Last Admin: 05/18/19 12:17 Dose: 250 ml Lactated Ringer's (Ringers, Lactated) 1,000 mls @ 40 mls/hr IV ASDIRECTED LINNETTE Last Admin: 05/18/19 12:26 Dose: 999 mls/hr Oxytocin/Lactated Ringer's (Pitocin In Lr 10 Units/1,000 Ml) 10 unit in 1,000 mls @ 12 mls/hr IV TITRATE LINNETTE; Protocol Last Titration: 05/18/19 14:30 Dose: 500 mls/hr Oxytocin/Lactated Ringer's (Pitocin In Lr 10 Units/1,000 Ml) 10 unit in 1,000 mls @ 500 mls/hr IV .CONTINUOUS LINNETTE Nalbuphine HCl (Nubain) 10 mg IVPUSH Q2H PRN PRN Reason: Pain Ondansetron HCl (Zofran) 4 mg IVPUSH Q4H PRN PRN Reason: Nausea/Vomiting Ondansetron HCl (Zofran) 4 mg IVPUSH ONETIME PRN PRN Reason: Nausea/Vomiting Sodium Chloride (Saline Flush) 10 ml FLUSH ASDIRECTED PRN PRN Reason: Keep Vein Open
--- NOTE | 2019-05-19 09:04 | PCM48HPAN ---
Post Anesthesia Note - EVALUATION WITHIN 48HRS OF ANESTHETIC Vital Signs in Normal Range: Yes Patient Participated in Evaluation: Yes Respiratory Function Stable: Yes Airway Patent: Yes Cardiovascular Function Stable: Yes Hydration Status Stable: Yes Pain Control Satisfactory: Yes Nausea and Vomiting Control Satisfactory: Yes Mental Status Recovered: Yes Vital Signs: Last Vital Signs Temp 36.4 C 05/18/19 07:00 Pulse 74 05/19/19 03:00 Resp 16 05/19/19 03:00 BP 102/54 L 05/19/19 03:00 Pulse Ox 100 05/19/19 03:00
[2019-05-19 10:18] VITALS: BP 115/68; PULSE 72
== END 2019-05-19 15:00 | disposition home or self-care (01) | DRG 560 ==
LOC: JD.OB 06:50 → OBSVTOIN 14:29 → JD.OB 14:29 → INTOOBSV 14:41 → OBSVTOIN 14:41
PROVIDERS: ADMIT Obstetrics & Gynecology; ATTEND Obstetrics & Gynecology
PROC: 10E0XZZ Delivery of Products of Conception, External Approach (ICD-10-PCS; principal; 2019-05-18)
PROC: 10907ZC Drainage of Amniotic Fluid, Therapeutic from Products of Conception, Via Natural or Artificial Opening (ICD-10-PCS; 2019-05-18)
PROC: 3E033VJ Introduction of Other Hormone into Peripheral Vein, Percutaneous Approach (ICD-10-PCS; 2019-05-18)
DX: O48.0 Post-term pregnancy (principal); Z3A.40 40 weeks gestation of pregnancy; Z37.0 Single live birth; Z79.899 Other long term (current) drug therapy; Z90.49 Acquired absence of other specified parts of digestive tract; Z87.891 Personal history of nicotine dependence; Z67.11 Type A blood, Rh negative
CPT/HCPCS: 01967; 36415; 51702; 59025; 59409; 85027; 86592; 86850; 86900; 86901; A9270-GY; J2590; J3010; J3490; J7120

== ENCOUNTER 2020-02-28 02:44 | Emergency (ER) | payer BC ==
[2020-02-28] MEDS ORDERED: Ondansetron 4 MG/2 ML SDV IVPUSH ONE ×2 (03:03→04:13)
[2020-02-28] MEDS ORDERED: Sodium Chloride 0.9% 10 ML Syringe FLUSH PRN (03:03)
[2020-02-28] MEDS ORDERED: HYDROmorphone 1 MG/ML Syringe IVPUSH ONE (03:04)
[2020-02-28] MEDS ORDERED: Ketorolac 30 MG/ML SDV IVPUSH ONE (03:05)
[2020-02-28 03:09] VITALS: BP 117/81; PULSE 63
--- NOTE | 2020-02-28 03:13 | EDM.PDOC ---
ED HPI GENERAL MEDICAL PROBLEM - General Chief Complaint: Flank Pain Stated Complaint: ABDOMINAL PAIN Time Seen by Provider: 02/28/20 02:58 Source of Information: Reports: Patient History Limitations: Reports: No Limitations - History of Present Illness INITIAL COMMENTS - FREE TEXT/NARRATIVE: The patient presents with bilateral flank pain and lower abdominal pain. This woke her up at 1am. She also has the urge to urinate but only goes a little. There is some blood when she wipes after. She has nausea and vomiting. She has no fever, chills, cough, congestion, runny nose, chest pain, shortness of breath, or diarrhea. She never had a history of kidney stones. Onset: Sudden Duration: Hour(s): Location: Reports: Abdomen, Back Quality: Reports: Sharp Severity: Severe Improves with: Reports: None Worsens with: Reports: None Associated Symptoms: Reports: Nausea/Vomiting. 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 Denies: Diarrhea : Reports: Flank Pain, Frequency Musculoskeletal: Reports: Back Pain Skin: Reports: No Symptoms Neurological: Reports: No Symptoms ED EXAM, GI/ABD - Physical Exam Exam: See Below Exam Limited By: No Limitations General Appearance: Alert, Moderate Distress Ears: Normal External Exam Nose: Normal Inspection Head: Atraumatic, Normocephalic Neck: Normal Inspection Respiratory/Chest: No Respiratory Distress, Lungs Clear, Normal Breath Sounds Cardiovascular: Regular Rate, Rhythm, No Edema, No Murmur GI/Abdominal Exam: Soft, Non-Tender, No Organomegaly, No Mass Back Exam: CVA Tenderness (L), CVA Tenderness (R) Extremities: Normal Inspection Neurological: Alert, Oriented, No Motor/Sensory Deficits Course - Vital Signs Last Recorded V/S: Last Vital Signs Temp 97.8 F 02/28/20 02:53 Pulse 63 02/28/20 02:53 Resp 16 02/28/20 02:53 BP 117/81 02/28/20 02:53 Pulse Ox 97 02/28/20 02:53 - Orders/Labs/Meds Orders: Active Orders 24 hr Category Date Time Status Peripheral IV Care [RC] . DIRECTED Care 02/28/20 03:04 Active Abdomen Pelvis wo Cont [CT] Stat Exams 02/28/20 03:03 Taken Sodium Chloride 0.9% [Normal Saline] 1,000 ml Med 02/28/20 03:15 Active IV ASDIRECTED Sodium Chloride 0.9% [Saline Flush] Med 02/28/20 03:03 Active 10 ml FLUSH ASDIRECTED PRN ED Antiemetic Medication Reflex [OM.PC] Stat Oth 02/28/20 03:03 Ordered Peripheral IV Insertion Adult [OM.PC] Stat Oth 02/28/20 03:03 Ordered Medication Orders Sodium Chloride (Normal Saline) 1,000 mls @ 125 mls/hr IV ASDIRECTED LINNETTE Last Admin: 02/28/20 03:11 Dose: 125 mls/hr Documented by: DIANE Sodium Chloride (Saline Flush) 10 ml FLUSH ASDIRECTED PRN PRN Reason: Keep Vein Open Last Admin: 02/28/20 03:13 Dose: 10 ml Documented by: DIANE Labs: Laboratory Tests 02/28/20 02/28/20 02/28/20 Range/Units 03:00 03:00 03:00 WBC 7.53 (3.98-10.04) K/mm3 RBC 4.96 (3.98-5.22) M/mm3 Hgb 13.8 D (11.2-15.7) gm/dl Hct 41.8 (34.1-44.9) % MCV 84.3 (79.4-94.8) fl MCH 27.8 (25.6-32.2) pg MCHC 33.0 (32.2-35.5) g/dl RDW Std Deviation 40.5 (36.4-46.3) fL Plt Count 315 (182-369) K/mm3 MPV 9.6 (9.4-12.3) fl Neut % (Auto) 45.8 (34.0-71.1) % Lymph % (Auto) 44.9 (19.3-51.7) % [place] % (Auto) 7.4 (4.7-12.5) % Eos % (Auto) 1.2 (0.7-5.8) Baso % (Auto) 0.4 (0.1-1.2) % Neut # (Auto) 3.45 (1.56-6.13) K/mm3 Lymph # (Auto) 3.38 (1.18-3.74) K/mm3 [place] # (Auto) 0.56 H (0.24-0.36) K/mm3 Eos # (Auto) 0.09 (0.04-0.36) K/mm3 Baso # (Auto) 0.03 (0.01-0.08) K/mm3 Sodium 137 (136-145) mEq/L Potassium 3.8 (3.5-5.1) mEq/L Chloride 100 (98-107) mEq/L Carbon Dioxide 25 (21-32) mEq/L Anion Gap 15.8 H (5-15) BUN 14 (7-18) mg/dL Creatinine 0.9 (0.55-1.02) mg/dL Est Cr Clr Drug Dosing 89.66 mL/min Estimated GFR (MDRD) > 60 (>60) mL/min BUN/Creatinine Ratio 15.6 (14-18) Glucose 93 (74-106) mg/dL Calcium 9.5 (8.5-10.1) mg/dL Total Bilirubin 0.6 (0.2-1.0) mg/dL AST 13 L (15-37) U/L ALT 20 (14-59) U/L Alkaline Phosphatase 78 (46-116) U/L Total Protein 8.7 H (6.4-8.2) g/dl Albumin 4.4 (3.4-5.0) g/dl Globulin 4.3 gm/dL Albumin/Globulin Ratio 1.0 (1-2) Lipase 166 (73-393) U/L HCG, Qual (NEGATIVE) Urine Color Yellow (Yellow) Urine Appearance Clear (Clear) Urine pH 6.0 (5.0-8.0) Ur Specific [place] > or = 1.030 (1.005-1.030) Urine Protein 2+ H (Negative) Urine Glucose (UA) Negative (Negative) Urine Ketones Negative (Negative) Urine Occult Blood 3+ H (Negative) Urine Nitrite Negative (Negative) Urine Bilirubin 1+ H (Negative) Urine Urobilinogen 0.2 (0.2-1.0) Ur Leukocyte Esterase Negative (Negative) Urine RBC 20-30 H (0-5) /hpf Urine WBC 5-10 H (0-5) /hpf Ur Squamous Epith Cells 10-20 H (0-5) /hpf Urine Bacteria Rare (FEW) /hpf Urine Mucus Many H (FEW) /hpf // Range/Units 03:00 WBC (3.98-10.04) K/mm3 RBC (3.98-5.22) M/mm3 Hgb (11.2-15.7) gm/dl Hct (34.1-44.9) % MCV (79.4-94.8) fl MCH (25.6-32.2) pg MCHC (32.2-35.5) g/dl RDW Std Deviation (36.4-46.3) fL Plt Count (182-369) K/mm3 MPV (9.4-12.3) fl Neut % (Auto) (34.0-71.1) % Lymph % (Auto) (19.3-51.7) % [place] % (Auto) (4.7-12.5) % Eos % (Auto) (0.7-5.8) Baso % (Auto) (0.1-1.2) % Neut # (Auto) (1.56-6.13) K/mm3 Lymph # (Auto) (1.18-3.74) K/mm3 [place] # (Auto) (0.24-0.36) K/mm3 Eos # (Auto) (0.04-0.36) K/mm3 Baso # (Auto) (0.01-0.08) K/mm3 Sodium (136-145) mEq/L Potassium (3.5-5.1) mEq/L Chloride (98-107) mEq/L Carbon Dioxide (21-32) mEq/L Anion Gap (5-15) BUN (7-18) mg/dL Creatinine (0.55-1.02) mg/dL Est Cr Clr Drug Dosing mL/min Estimated GFR (MDRD) (>60) mL/min BUN/Creatinine Ratio (14-18) Glucose (74-106) mg/dL Calcium (8.5-10.1) mg/dL Total Bilirubin (0.2-1.0) mg/dL AST (15-37) U/L ALT (14-59) U/L Alkaline Phosphatase (46-116) U/L Total Protein (6.4-8.2) g/dl Albumin (3.4-5.0) g/dl Globulin gm/dL Albumin/Globulin Ratio (1-2) Lipase (73-393) U/L HCG, Qual Negative (NEGATIVE) Urine Color (Yellow) Urine Appearance (Clear) Urine pH (5.0-8.0) Ur Specific [place] (1.005-1.030) Urine Protein (Negative) Urine Glucose (UA) (Negative) Urine Ketones (Negative) Urine Occult Blood (Negative) Urine Nitrite (Negative) Urine Bilirubin (Negative) Urine Urobilinogen (0.2-1.0) Ur Leukocyte Esterase (Negative) Urine RBC (0-5) /hpf Urine WBC (0-5) /hpf Ur Squamous Epith Cells (0-5) /hpf Urine Bacteria (FEW) /hpf Urine Mucus (FEW) /hpf Meds: Medications Generic Name Dose Route Start Last Admin Trade Name Freq PRN Reason Stop Dose Admin Sodium Chloride 1,000 mls @ 125 mls/hr 02/28/20 03:15 02/28/20 03:11 Normal Saline IV 125 mls/hr ASDIRECTED LINNETTE Administration Sodium Chloride 10 ml 02/28/20 03:03 02/28/20 03:13 Saline Flush FLUSH 10 ml ASDIRECTED PRN Administration Keep Vein Open Discontinued Medications Generic Name Dose Route Start Last Admin Trade Name Freq PRN Reason Stop Dose Admin Hydromorphone HCl 1 mg 02/28/20 03:04 02/28/20 03:13 Dilaudid IVPUSH 02/28/20 03:05 1 mg ONETIME ONE Administration Ketorolac Tromethamine 30 mg 02/28/20 03:05 02/28/20 03:14 Toradol IVPUSH 02/28/20 03:06 30 mg ONETIME ONE Administration Ondansetron HCl 4 mg 02/28/20 03:03 02/28/20 03:10 Zofran IVPUSH 02/28/20 03:04 4 mg ONETIME ONE Administration - Re-Assessments/Exams Free Text/Narrative Re-Assessment/Exam: 02/28/20 03:12 I ordered an IV NS at 125mL/hr, zofran 4mg IV, dilaudid 1mg IV, toradol 30mg IV, labs, UA and a CT of her abdomen and pelvis without IV or oral contrast. 02/28/20 04:03 Her CBC and CMP look good. Her HCG is negative. Her lipase is normal. Her UA shows no UTI but she has some blood. Her CT shows a 6mm obstructing stone at the right UVJ causing hydronephrosis of the right kidney as well as hydroureter. Bilateral 1-2mm nonobstructing stones upper pole of both the right and left kidney. 02/28/20 04:12 She feels better. I will discharge her home with some flomax, zofran and hy drocodone. Departure - Departure Time of Disposition: 04:20 Disposition: Home, Self-Care 01 Condition: Good Clinical Impression: Ureteral colic, Ureteral calculus, right, Kidney stones - Discharge Information *PRESCRIPTION DRUG MONITORING PROGRAM REVIEWED*: Not Applicable *COPY OF PRESCRIPTION DRUG MONITORING REPORT IN PATIENT WILFRED: Not Applicable Referrals: Marcella Gill MD [Primary Care Provider] - Jennifer Ardon MD [Ordering Only Provider] - 1 Week Forms: ED Department Discharge Additional Instructions: Drink plenty of fluids. Take the flomax daily. Take the zofran every 6 hours as needed for nausea and vomiting. Take tylenol or motrin as needed for pain. If that does not help, try the hydrocodone. Follow up with Dr Ardon the urologist at [place]. Please return if you are worse. Sepsis Event Note (ED) - Evaluation Sepsis Screening Result: No Definite Risk - Focused Exam Vital Signs: Vital Signs Temp Pulse Resp BP Pulse Ox 02/28/20 02:53 97.8 F 63 16 117/81 97 - My Orders Last 24 Hours: My Active Orders 02/28/20 03:03 Abdomen Pelvis wo Cont [CT] Stat Sodium Chloride 0.9% [Saline Flush] 10 ml FLUSH ASDIRECTED PRN ED Antiemetic Medication Reflex [OM.PC] Stat Peripheral IV Insertion Adult [OM.PC] Stat 02/28/20 03:04 Peripheral IV Care [RC] . DIRECTED 02/28/20 03:15 Sodium Chloride 0.9% [Normal Saline] 1,000 ml IV ASDIRECTED - Assessment/Plan Last 24 Hours: My Active Orders 02/28/20 03:03 Abdomen Pelvis wo Cont [CT] Stat Sodium Chloride 0.9% [Saline Flush] 10 ml FLUSH ASDIRECTED PRN ED Antiemetic Medication Reflex [OM.PC] Stat Peripheral IV Insertion Adult [OM.PC] Stat 02/28/20 03:04 Peripheral IV Care [RC] . DIRECTED 02/28/20 03:15 Sodium Chloride 0.9% [Normal Saline] 1,000 ml IV ASDIRECTED
[2020-02-28] MEDS ORDERED: Sodium Chloride 0.9% 1,000 ML IV SCH (03:15)
[2020-02-28] MEDS ORDERED: Tamsulosin 0.4 MG Cap.ER PO ONE (04:14)
== END 2020-02-28 04:30 | disposition home or self-care (01) ==
LOC: JD.ED 02:44
DX: N13.2 Hydronephrosis with renal and ureteral calculous obstruction (principal)
CPT/HCPCS: 36415; 74176; 80053; 81001; 83690; 84703; 85025; 96374; 96375; 99284-25; J1170; J1885; J2405; J7030

== ENCOUNTER 2021-03-01 06:59 | Inpatient (IN) | payer BC ==
[2021-03-01] MEDS ORDERED: Nalbuphine 10 MG/1 ML Vial IVPUSH PRN (07:23)
[2021-03-01] MEDS ORDERED: Ondansetron 4 MG/2 ML SDV IVPUSH PRN (07:23)
[2021-03-01] MEDS ORDERED: Sodium Chloride 0.9% 10 ML Syringe FLUSH PRN (07:23)
[2021-03-01] MEDS ORDERED: Famotidine 20 MG Tab PO PRN (07:23)
--- NOTE | 2021-03-01 07:28 | PCM.LDHP ---
L&D History of Present Illness - General Date of Service: 03/01/21 Admit Problem/Dx: Patient Status Order with Admit Dx/Problem 03/01/21 07:24 Patient Status [ADT] Routine Admission Diagnosis/Problem Admission Diagnosis/Problem Normal in third trimester Source of Information: Patient History Limitations: Reports: No Limitations - History of Present Illness Introduction:: Patient is a 30 y/o at 39 0/7 wks who presents for elective IOL - Related Data Allergies/Adverse Reactions: Allergies Allergy/AdvReac Type Severity Reaction Status Date / Time No Known Allergies Allergy Verified 06/29/17 06:59 Home Medications: Home Meds Sertraline [Zoloft] 50 mg PO DAILY 03/01/21 [History] Docusate Sodium [Colace] 100 mg PO BID PRN cap 03/02/21 [Rx] Ibuprofen [Motrin] 600 mg PO Q6H PRN tablet 03/02/21 [Rx] 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 (Approximate): - Past Surgical History GI Surgical History: Reports: Appendectomy Social & Family History - Family History Family Medical History: No Pertinent Family History - Tobacco Use Tobacco Use Status *Q: Former Tobacco User - Caffeine Use Caffeine Use: Reports: None - Alcohol Use Alcohol Use History: No - Recreational Drug Use Recreational Drug Use: No H&P Review of Systems - Review of Systems: Review Of Systems: See Below General: Reports: No Symptoms Pulmonary: Reports: No Symptoms Cardiovascular: Reports: No Symptoms Gastrointestinal: Reports: No Symptoms Genitourinary: Reports: No Symptoms Musculoskeletal: Reports: No Symptoms Psychiatric: Reports: No Symptoms Neurological: Reports: No Symptoms L&D Exam - Exam Exam: See Below - OB Specific Contraction Intensity: Irritability Movement: Active Heart Tones: Present Heart Tones per Min: 130 Heart Rate (FHR) Variability: Moderate (6-25 bpm) Presentation: Vertex - Cronin Score Cronin Score Cervix Position: Posterior Cronin Score Consistency: Soft Cronin Score Effacement: 51-70% Cronin Score Dilation: 1-2 cm Cronin Score 's Station: -2 Cronin Score Total: 6 - Exam General: Alert, Oriented, Cooperative Lungs: Clear to Auscultation, Normal Respiratory Effort Cardiovascular: Regular Rate, Regular Rhythm GI/Abdominal Exam: Soft, Non-Tender Genitourinary: Normal external exam Extremities: Normal Inspection - Patient Data Result Diagrams: 03/01/21 08:04 - Problem List (1) 39 weeks gestation of SNOMED Code(s): 51763762 ICD Code: Z3A.39 - 39 WEEKS GESTATION OF Status: Acute Current Visit: Yes (2) Rh negative state in antepartum period SNOMED Code(s): 174612284 ICD Code: O26.899 - OTH RELATED CONDITIONS, UNSPECIFIED TRIMESTER; Z67.91 - UNSPECIFIED BLOOD TYPE, RH NEGATIVE Status: Acute Current Visit: No Problem List Initiated/Reviewed/Updated: Yes Orders Last 24hrs: Active Orders 24 hr Category Date Time Status Patient Status [ADT] Routine ADT 03/01/21 07:24 Ordered Communication Order [RC] ASDIRECTED Care 03/01/21 07:24 Ordered Communication Order [RC] ASDIRECTED Care 03/01/21 07:24 Ordered Communication Order [RC] ASDIRECTED Care 03/01/21 07:24 Ordered Heart Tones [RC] ASDIRECTED Care 03/01/21 07:25 Ordered Monitoring [RC] INTERMITTENT Care 03/01/21 07:24 Ordered Non Stress Test [RC] PER UNIT ROUTINE Care 03/01/21 07:24 Ordered Notify Provider [RC] ASDIRECTED Care 03/01/21 07:24 Ordered Notify Provider [RC] PRN Care 03/01/21 07:24 Ordered Peripheral IV Care [RC] . DIRECTED Care 03/01/21 07:25 Ordered Vaginal Exam [RC] ASDIRECTED Care 03/01/21 07:24 Ordered Vital Signs [RC] ASDIRECTED Care 03/01/21 07:24 Ordered Regular Diet [DIET] Diet 03/01/21 Breakfast Ordered CBC W/O DIFF,HEMOGRAM [HEME] Routine Lab 03/01/21 07:23 Ordered CORONAVIRUS COVID-19 OUMOU [MOLEC] Stat Lab 03/01/21 07:27 Ordered RAPID PLASMA REAGIN,RPR [CHEM] Routine Lab 03/01/21 07:24 Ordered TYPE AND SCREEN [BBK] Routine Lab 03/01/21 07:23 Ordered Famotidine [Pepcid] Med 03/01/21 07:23 Ordered 20 mg PO Q12H PRN Lactated Ringers [Ringers, Lactated] 1,000 ml Med 03/01/21 07:30 Ordered IV ASDIRECTED Nalbuphine [Nubain] Med 03/01/21 07:23 Ordered 10 mg IVPUSH Q2H PRN Ondansetron [Zofran] Med 03/01/21 07:23 Ordered 4 mg IVPUSH Q4H PRN Oxytocin/Lactated Ringers [Pitocin in LR 10 Units/1,000 Med 03/01/21 07:30 Ordered ML] 10 unit in 1,000 ml IV .CONTINUOUS Sodium Chloride 0.9% [Saline Flush] Med 03/01/21 07:23 Ordered 10 ml FLUSH ASDIRECTED PRN Electronic Heart Tones Ext w TOCO [WOMSER] Oth 03/01/21 07:24 Ordered Routine Electronic Heart Tones Internal [WOMSER] Per Unit Oth 03/01/21 07:24 Ordered Routine Peripheral IV Insertion Adult [OM.PC] Routine Oth 03/01/21 07:24 Ordered Resuscitation Status Routine Resus Stat 03/01/21 07:23 Ordered Assessment/Plan Comment:: * Labs done * GBS negative * Pitocin and AROM for IOL * Pain management per patient preference * Anticipate
[2021-03-01] MEDS ORDERED: Oxytocin/Lactated Ringers 10 UNIT/1,000 ML BAG IV SCH ×2 (07:30→10:00)
[2021-03-01] MEDS: Lactated Ringers 1,000 ML IV SCH ×2 (07:56→09:49)
[2021-03-01] MEDS ORDERED: diphenhydrAMINE 50 MG/ML SDV IVPUSH PRN (09:41)
[2021-03-01] MEDS ORDERED: fentaNYL 100 MCG/2 ML SDV EPIDUR PRN (09:41)
[2021-03-01] MEDS ORDERED: Bupivacaine/fentaNYL/NS 100 ML Bag EPIDUR PRN (09:41)
[2021-03-01] MEDS ORDERED: ePHEDrine 50 MG/ML SDV IVPUSH PRN (09:41)
--- NOTE | 2021-03-01 09:47 | PCM.PREANE ---
Preanesthetic Assessment - Procedure Proposed Procedure: Epidural - Anesthesia/Transfusion/Family Hx Anesthesia History: Prior Anesthesia Without Reaction Family History of Anesthesia Reaction: No Transfusion History: No Prior Transfusion(s) Intubation History: Unknown - Review of Systems General: No Symptoms Pulmonary: No Symptoms Cardiovascular: No Symptoms Gastrointestinal: Abdominal Pain (uterine contractions) Neurological: No Symptoms Other: Reports: Easy Bruising, Depression, Anxiety - Physical Assessment NPO Status Date: 03/01/21 NPO Status Time: 09:15 Vital Signs: Last Vital Signs Temp 97.8 F 03/01/21 07:24 Pulse 84 03/01/21 07:24 Resp 16 03/01/21 07:24 BP 108/68 03/01/21 07:24 Pulse Ox 99 03/01/21 07:24 Height: 1.75 m Weight: 77.882 kg ASA Class: 2 Mental Status: Alert & Oriented x3 Airway Class: Mallampati = 1 Thyro-Mental Finger Breadths: 3 Mouth Opening Finger Breadths: 3 ROM/Head Extension: Full Lungs: Clear to Auscultation, Normal Respiratory Effort Cardiovascular: Regular Rate, Regular Rhythm, No Murmurs - Lab Values: Laboratory Last Values WBC 8.75 K/mm3 (3.98-10.04) 03/01/21 08:04 RBC 4.09 M/mm3 (3.98-5.22) 03/01/21 08:04 Hgb 11.6 gm/dl (11.2-15.7) D 03/01/21 08:04 Hct 34.8 % (34.1-44.9) 03/01/21 08:04 MCV 85.1 fl (79.4-94.8) 03/01/21 08:04 MCH 28.4 pg (25.6-32.2) 03/01/21 08:04 MCHC 33.3 g/dl (32.2-35.5) 03/01/21 08:04 RDW Std Deviation 40.3 fL (36.4-46.3) 03/01/21 08:04 Plt Count 256 K/mm3 (182-369) 03/01/21 08:04 MPV 9.7 fl (9.4-12.3) 03/01/21 08:04 SARS-CoV-2 RNA (OUMOU) Negative (NEGATIVE) 03/01/21 07:10 Blood Type A NEGATIVE 03/01/21 08:04 Gel Antibody Screen Negative 03/01/21 08:04 - Allergies Allergies/Adverse Reactions: Allergies Allergy/AdvReac Type Severity Reaction Status Date / Time No Known Allergies Allergy Verified 06/29/17 06:59 - Acknowledgements Anesthesia Type Planned: Epidural Pt an Appropriate Candidate for the Planned Anesthesia: Yes Alternatives and Risks of Anesthesia Discussed w Pt/Guardian: Yes Pt/Guardian Understands and Agrees with Anesthesia Plan: Yes PreAnesthesia Questionnaire - Past Health History Medical/Surgical History: Denies Medical/Surgical History HEENT History: Reports: None Cardiovascular History: Reports: None Respiratory History: Reports: None Gastrointestinal History: Reports: GERD Genitourinary History: Reports: Renal Calculus (1 year ago (3 episodes)) 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 Musculoskeletal History: Reports: None Neurological History: Reports: None Psychiatric History: Reports: None, Depression Endocrine/Metabolic History: Reports: None Hematologic History: Reports: None Immunologic History: Reports: None Oncologic (Cancer) History: Reports: None Dermatologic History: Reports: None - Past Surgical History GI Surgical History: Reports: Appendectomy - SUBSTANCE USE Tobacco Use Status *Q: Former Tobacco User Tobacco Use Within Last Twelve Months: No Second Hand Smoke Exposure: No Days Per Week of Alcohol Use: 0 Number of Drinks Per Day: 0 Total Drinks Per Week: 0 Recreational Drug Use History: No - HOME MEDS Home Medications: Home Meds Sertraline [Zoloft] 50 mg PO DAILY 03/01/21 [History] - CURRENT (IN HOUSE) MEDS Current Meds: Current Medications Diphenhydramine HCl (Diphenhydramine 50 Mg/Ml Sdv) 25 mg IVPUSH Q6H PRN PRN Reason: pruritis Ephedrine Sulfate (Ephedrine 50 Mg/Ml Sdv) 5 mg IVPUSH ASDIRECTED PRN PRN Reason: Hypotension Famotidine (Famotidine 20 Mg Tab) 20 mg PO Q12H PRN PRN Reason: Heartburn Fentanyl (Fentanyl 100 Mcg/2 Ml Sdv) 100 mcg EPIDUR Q3H PRN PRN Reason: Pain Fentanyl/Bupivacaine HCl (Bupivacaine/Fentanyl/Ns 100 Ml Bag) 100 ml EPIDUR ASDIRECTED PRN PRN Reason: Pain Oxytocin/Lactated Ringer's (Pitocin In Lr 10 Units/1,000 Ml) 10 unit in 1,000 mls @ 500 mls/hr IV .CONTINUOUS LINNETTE Last Admin: 03/01/21 07:57 Dose: 500 mls/hr Documented by: Lactated Ringer's (Ringers, Lactated) 1,000 mls @ 40 mls/hr IV ASDIRECTED LINNETTE Last Admin: 03/01/21 07:56 Dose: 40 mls/hr Documented by: Nalbuphine HCl (Nalbuphine 10 Mg/1 Ml Vial) 10 mg IVPUSH Q2H PRN PRN Reason: Pain Ondansetron HCl (Ondansetron 4 Mg/2 Ml Sdv) 4 mg IVPUSH Q4H PRN PRN Reason: Nausea/Vomiting Sodium Chloride (Sodium Chloride 0.9% 10 Ml Syringe) 10 ml FLUSH ASDIRECTED PRN PRN Reason: Keep Vein Open
--- NOTE | 2021-03-01 14:25 | PCM.DEL ---
L & D Note - General Info Date of Service: 03/01/21 - Delivery Note Labor: Induced by ARM, Induced by Oxytocin Delivery Outcome: Livebirth Infant Delivery Method: Spontaneous Vaginal Delivery-Single Infant Delivery Mode: Spontaneous Presentation: Left Occiput Anterior (PURA) Nuchal Cord: None Anesthesia Type: Epidural Amniotic Fluid Description: Clear Episiotomy Type: None Placenta: Intact, Spontaneous Cord: 3 Vessels Estimated Blood Loss: 150 Resuscitation Needed: Yes [place]: Bulb Syringe, Stimulated, Warmed, Jackson Used, Warmer Used Delivery Comments (Free Text/Narrative):: Patient found to be complete and began pushing. With maternal pushing effort head delivered from PURA presentation. No nuchal cord present. With gentle downward traction the shoulders and body delivered. placed on maternal abdomen. Cord clamped and cut. Cord blood obtained. Placenta allowed time to separate and expelled intact. Inspection of perineum showed no lacerations. - General Info Date of Service: 03/01/21 - Patient Data Vitals - Most Recent: Last Vital Signs Temp 36.6 C 03/01/21 07:24 Pulse 84 03/01/21 07:24 Resp 16 03/01/21 07:24 BP 108/68 03/01/21 07:24 Pulse Ox 99 03/01/21 07:24 Weight - Most Recent: 77.882 kg I&O - Last 24 Hours: Intake & Output 02/28/21 03/01/21 03/01/21 22:59 06:59 14:59 Intake Total 0 Balance 0 - Exam Urinary Catheter Total Time: 0Days 0Hours - Problem List & Annotations (1) 39 weeks gestation of SNOMED Code(s): 23959501 Code(s): Z3A.39 - 39 WEEKS GESTATION OF Status: Acute Current Visit: Yes (2) Rh negative state in antepartum period SNOMED Code(s): 748669622 Code(s): O26.899 - OTH RELATED CONDITIONS, UNSPECIFIED TRIMESTER; Z67.91 - UNSPECIFIED BLOOD TYPE, RH NEGATIVE Status: Acute Current Visit: No (3) Vaginal delivery SNOMED Code(s): 689585029 Code(s): O80 - ENCOUNTER FOR FULL-TERM UNCOMPLICATED DELIVERY Status: Acute Current Visit: No - Problem List Review Problem List Initiated/Reviewed/Updated: Yes - My Orders Last 24 Hours: My Active Orders 03/01/21 Breakfast Regular Diet [DIET] 03/01/21 07:23 Famotidine [Pepcid] 20 mg PO Q12H PRN Nalbuphine [Nubain] 10 mg IVPUSH Q2H PRN Ondansetron [Zofran] 4 mg IVPUSH Q4H PRN Sodium Chloride 0.9% [Saline Flush] 10 ml FLUSH ASDIRECTED PRN Resuscitation Status Routine 03/01/21 07:24 Patient Status [ADT] Routine Communication Order [RC] ASDIRECTED Communication Order [RC] ASDIRECTED Communication Order [RC] ASDIRECTED Monitoring [RC] INTERMITTENT Non Stress Test [RC] PER UNIT ROUTINE Notify Provider [RC] ASDIRECTED Notify Provider [RC] PRN Vaginal Exam [RC] ASDIRECTED Vital Signs [RC] ASDIRECTED Electronic Heart Tones Ext w TOCO [WOMSER] Routine Electronic Heart Tones Internal [WOMSER] Per Unit Routine Peripheral IV Insertion Adult [OM.PC] Routine 03/01/21 07:25 Heart Tones [RC] ASDIRECTED Peripheral IV Care [RC] Q4HR 03/01/21 07:30 Lactated Ringers [Ringers, Lactated] 1,000 ml IV ASDIRECTED Oxytocin/Lactated Ringers [Pitocin in LR 10 Units/1,000 ML] 10 unit in 1,000 ml IV .CONTINUOUS 03/01/21 08:04 RAPID PLASMA REAGIN,RPR [CHEM] Routine 03/01/21 10:00 Oxytocin/Lactated Ringers [Pitocin in LR 10 Units/1,000 ML] 10 unit in 1,000 ml IV TITRATE 03/01/21 14:23 Patient Status Manage Transfer [TRANSFER] Routine - Assessment Assessment:: PPD#0 - Plan Plan:: Routine cares Breast feeding Assess baby blood type for need for Rhogam Discharge in 1-2 days
[2021-03-01] MEDS ORDERED: Witch Hazel Medicated Pads 40/Jar TOP PRN (15:04)
[2021-03-01] MEDS ORDERED: Acetaminophen 325 MG Tab PO PRN (15:04)
[2021-03-01] MEDS ORDERED: Docusate Sodium 100 MG Cap PO PRN (15:04)
[2021-03-01] MEDS ORDERED: Benzocaine/Menthol 20%-0.5% Spray 78 GM Cannister TOP PRN (15:04)
[2021-03-01] MEDS: Ibuprofen 600 MG Tab PO PRN ×2 (16:56→23:44)
[2021-03-02] MEDS: Ibuprofen 600 MG Tab PO PRN ×2 (07:10→13:48)
--- NOTE | 2021-03-02 08:25 | PCM.PNPP ---
- General Info Date of Service: 03/02/21 Functional Status: Reports: Pain Controlled, Tolerating Diet, Ambulating, Urinating - Review of Systems General: Reports: No Symptoms Pulmonary: Reports: No Symptoms Cardiovascular: Reports: No Symptoms Gastrointestinal: Reports: No Symptoms Genitourinary: Reports: No Symptoms Musculoskeletal: Reports: No Symptoms Neurological: Reports: No Symptoms - General Info Date of Service: 03/02/21 - Patient Data Vital Signs - Most Recent: Last Vital Signs Temp 36.6 C 03/02/21 07:27 Pulse 82 03/02/21 07:27 Resp 16 03/02/21 07:27 BP 98/55 L 03/02/21 07:27 Pulse Ox 100 03/02/21 07:27 Weight - Most Recent: 77.882 kg I&O - Last 24 Hours: Intake & Output 03/01/21 03/02/21 03/02/21 22:59 06:59 14:59 Intake Total 2502 Balance 2502 Lab Results - Last 24 Hours: Laboratory Results - last 24 hr 03/01/21 03/01/21 03/01/21 Range/Units 07:10 08:04 08:04 WBC 8.75 (3.98-10.04) K/mm3 RBC 4.09 (3.98-5.22) M/mm3 Hgb 11.6 D (11.2-15.7) gm/dl Hct 34.8 (34.1-44.9) % MCV 85.1 (79.4-94.8) fl MCH 28.4 (25.6-32.2) pg MCHC 33.3 (32.2-35.5) g/dl RDW Std Deviation 40.3 (36.4-46.3) fL Plt Count 256 (182-369) K/mm3 MPV 9.7 (9.4-12.3) fl SARS-CoV-2 RNA (OUMOU) Negative (NEGATIVE) Blood Type A NEGATIVE Gel Antibody Screen Negative Screen RhIG Candidate? Rhogam Indicated 03/01/21 Range/Units 18:42 WBC (3.98-10.04) K/mm3 RBC (3.98-5.22) M/mm3 Hgb (11.2-15.7) gm/dl Hct (34.1-44.9) % MCV (79.4-94.8) fl MCH (25.6-32.2) pg MCHC (32.2-35.5) g/dl RDW Std Deviation (36.4-46.3) fL Plt Count (182-369) K/mm3 MPV (9.4-12.3) fl SARS-CoV-2 RNA (OUMOU) (NEGATIVE) Blood Type Cancelled Gel Antibody Screen Cancelled Screen 0 ros/5 flds - neg RhIG Candidate? Yes Rhogam Indicated Cancelled Med Orders - Current: Current Medications Acetaminophen (Acetaminophen 325 Mg Tab) 650 mg PO Q4H PRN PRN Reason: mild pain or fever Benzocaine/Menthol (Benzocaine/Menthol 20%-0.5% [place] 78 Gm Cannister) 0 gm TOP ASDIRECTED PRN PRN Reason: Perineal Comfort Measure Docusate Sodium (Docusate Sodium 100 Mg Cap) 100 mg PO BID PRN PRN Reason: Constipation Ibuprofen (Ibuprofen 600 Mg Tab) 600 mg PO Q6H PRN PRN Reason: Mild pain or fever Last Admin: 03/02/21 07:10 Dose: 600 mg Documented by: Tomeka Rodrigues (Tomeka Rodrigues Medicated Pads 40/Jar) 1 pad TOP ASDIRECTED PRN PRN Reason: Perineal Comfort Measure Discontinued Medications Diphenhydramine HCl (Diphenhydramine 50 Mg/Ml Sdv) 25 mg IVPUSH Q6H PRN PRN Reason: pruritis Ephedrine Sulfate (Ephedrine 50 Mg/Ml Sdv) 5 mg IVPUSH ASDIRECTED PRN PRN Reason: Hypotension Famotidine (Famotidine 20 Mg Tab) 20 mg PO Q12H PRN PRN Reason: Heartburn Fentanyl (Fentanyl 100 Mcg/2 Ml Sdv) 100 mcg EPIDUR Q3H PRN PRN Reason: Pain Last Admin: 03/01/21 09:49 Dose: 100 mcg Documented by: Fentanyl/Bupivacaine HCl (Bupivacaine/Fentanyl/Ns 100 Ml Bag) 100 ml EPIDUR ASDIRECTED PRN PRN Reason: Pain Last Admin: 03/01/21 09:49 Dose: 100 ml Documented by: Oxytocin/Lactated Ringer's (Pitocin In Lr 10 Units/1,000 Ml) 10 unit in 1,000 mls @ 500 mls/hr IV .CONTINUOUS LINNETTE Lactated Ringer's (Ringers, Lactated) 1,000 mls @ 40 mls/hr IV ASDIRECTED LINNETTE Last Admin: 03/01/21 09:49 Dose: 40 mls/hr Documented by: Oxytocin/Lactated Ringer's (Pitocin In Lr 10 Units/1,000 Ml) 10 unit in 1,000 mls @ 12 mls/hr IV TITRATE LINNETTE; Protocol Last Titration: 03/01/21 12:45 Dose: 12 munits/min, 72 mls/hr Documented by: Nalbuphine HCl (Nalbuphine 10 Mg/1 Ml Vial) 10 mg IVPUSH Q2H PRN PRN Reason: Pain Ondansetron HCl (Ondansetron 4 Mg/2 Ml Sdv) 4 mg IVPUSH Q4H PRN PRN Reason: Nausea/Vomiting Sodium Chloride (Sodium Chloride 0.9% 10 Ml Syringe) 10 ml FLUSH ASDIRECTED PRN PRN Reason: Keep Vein Open - Interaction Infant Disposition, : [place] in Room with Family Interaction: Holding Infant Feeding: Breastfed Infant; Nursed Well Support Person: - Recovery Exam Fundal Tone: Firm Fundal Level: 3 Fingerbreadths Below Umbilicus Fundal Placement: Midline Lochia Amount: Scant, Small Lochia Color: Rubra/Red Perineum Description: Intact, Minimal Bruising/Swelling Episiotomy/Laceration: None Bladder Status: Voiding Urinary Elimination: Voided - Exam General: Alert, Oriented, Cooperative GI/Abdominal Exam: Soft, Non-Tender Skin: Warm, Dry, Intact - Problem List & Annotations (1) 39 weeks gestation of SNOMED Code(s): 93129356 Code(s): Z3A.39 - 39 WEEKS GESTATION OF Status: Acute Current Visit: Yes (2) Rh negative state in antepartum period SNOMED Code(s): 835768408 Code(s): O26.899 - OTH RELATED CONDITIONS, UNSPECIFIED TRIMESTER; Z67.91 - UNSPECIFIED BLOOD TYPE, RH NEGATIVE Status: Acute Current Visit: No (3) Vaginal delivery SNOMED Code(s): 206371163 Code(s): O80 - ENCOUNTER FOR FULL-TERM UNCOMPLICATED DELIVERY Status: Acute Current Visit: No - Problem List Review Problem List Initiated/Reviewed/Updated: Yes - My Orders Last 24 Hours: My Active Orders 03/01/21 08:04 RAPID PLASMA REAGIN,RPR [CHEM] Routine 03/01/21 15:04 Acetaminophen [TylenoL] 650 mg PO Q4H PRN Benzocaine/Menthol [Dermoplast Pain Relief 20%-0.5% [place]] See Dose Instructions TOP ASDIRECTED PRN Docusate Sodium [Colace] 100 mg PO BID PRN Ibuprofen [Motrin] 600 mg PO Q6H PRN [place] [Tucks] 1 pad TOP ASDIRECTED PRN Heat Therapy [OM.PC] PRN 03/01/21 15:04 Activity as Tolerated [RC] PER UNIT ROUTINE Up ad Deepa [RC] ASDIRECTED Vital Signs [RC] ,,,03 Assess Lochia [WOMSER] Per Unit Routine Assess Uterine Involution [WOMSER] Per Unit Routine Breast Pump [WOMSER] Per Unit Routine Ice Therapy [OM.PC] Per Unit Routine Perineal Care [OM.PC] Per Unit Routine Peripheral IV Discontinue [OM.PC] Routine Sitz Bath [OM.PC] Per Unit Routine 03/01/21 Dinner Regular Diet [DIET] 03/02/21 07:47 Ready for Discharge [RC] PER UNIT ROUTINE 03/02/21 15:04 Heat Therapy [OM.PC] PRN - Assessment Assessment:: PPD#1 - Plan Plan:: Routine cares Breast feeding Baby Rh positive, given Rhogam Discharge today
--- NOTE | 2021-03-02 08:28 | PCM.DCSUM1 ---
Discharge Summary - Discharge Data Discharge Date: 03/02/21 Discharge Disposition: Home, Self-Care 01 Condition: Good - Referral to Home Health Primary Care Physician: Marcella Gill MD - Discharge Diagnosis/Problem(s) (1) 39 weeks gestation of SNOMED Code(s): 56492608 ICD Code: Z3A.39 - 39 WEEKS GESTATION OF Status: Acute Current Visit: Yes (2) Rh negative state in antepartum period SNOMED Code(s): 281411479 ICD Code: O26.899 - OTH RELATED CONDITIONS, UNSPECIFIED TRIMESTER; Z67.91 - UNSPECIFIED BLOOD TYPE, RH NEGATIVE Status: Acute Current Visit: No (3) Vaginal delivery SNOMED Code(s): 354281568 ICD Code: O80 - ENCOUNTER FOR FULL-TERM UNCOMPLICATED DELIVERY Status: Acute Current Visit: No - Patient Summary/Data Complications: None Consults: None Recommended Follow-up Testing/Procedures: Follow up in 3 weeks for check Hospital Course: 30 y/o at 39 0/7 wks presented for IOL. Done with pitocin and AROM. Progressed well to complete dilation. Underwent an uncomplicated . See delivery note. did well and was discharged home on PPD#1 - Patient Instructions Diet: Regular Diet as Tolerated Activity: As Tolerated Activity, Other: Pelvic rest for 6 weeks Driving: May Drive Today Showering/Bathing: May Shower Showering/Bathing, Other: May Bathe Notify Provider of: Fever, Increased Pain, Swelling and Redness, Drainage, Nausea and/or Vomiting - Discharge Plan *PRESCRIPTION DRUG MONITORING PROGRAM REVIEWED*: No *COPY OF PRESCRIPTION DRUG MONITORING REPORT IN PATIENT WILFRED: No Home Medications: Home Meds Sertraline [Zoloft] 50 mg PO DAILY 03/01/21 [History] Docusate Sodium [Colace] 100 mg PO BID PRN cap 03/02/21 [Rx] Ibuprofen [Motrin] 600 mg PO Q6H PRN tablet 03/02/21 [Rx] Referrals: Marcella Gill MD [Primary Care Provider] - (3 weeks for check ) - Discharge Summary/Plan Comment DC Time >30 min.: No Total # of Minutes for Discharge Time: 15 - Patient Data Vitals - Most Recent: Last Vital Signs Temp 36.6 C 03/02/21 07:27 Pulse 82 03/02/21 07:27 Resp 16 03/02/21 07:27 BP 98/55 L 03/02/21 07:27 Pulse Ox 100 03/02/21 07:27 Weight - Most Recent: 77.882 kg I&O - Last 24 hours: Intake & Output 03/01/21 03/02/21 03/02/21 22:59 06:59 14:59 Intake Total 2502 Balance 2502 Lab Results - Last 24 hrs: Laboratory Results - last 24 hr 03/01/21 03/01/21 03/01/21 Range/Units 07:10 08:04 08:04 WBC 8.75 (3.98-10.04) K/mm3 RBC 4.09 (3.98-5.22) M/mm3 Hgb 11.6 D (11.2-15.7) gm/dl Hct 34.8 (34.1-44.9) % MCV 85.1 (79.4-94.8) fl MCH 28.4 (25.6-32.2) pg MCHC 33.3 (32.2-35.5) g/dl RDW Std Deviation 40.3 (36.4-46.3) fL Plt Count 256 (182-369) K/mm3 MPV 9.7 (9.4-12.3) fl SARS-CoV-2 RNA (OUMOU) Negative (NEGATIVE) Blood Type A NEGATIVE Gel Antibody Screen Negative Screen RhIG Candidate? Rhogam Indicated 03/01/21 Range/Units 18:42 WBC (3.98-10.04) K/mm3 RBC (3.98-5.22) M/mm3 Hgb (11.2-15.7) gm/dl Hct (34.1-44.9) % MCV (79.4-94.8) fl MCH (25.6-32.2) pg MCHC (32.2-35.5) g/dl RDW Std Deviation (36.4-46.3) fL Plt Count (182-369) K/mm3 MPV (9.4-12.3) fl SARS-CoV-2 RNA (OUMOU) (NEGATIVE) Blood Type Cancelled Gel Antibody Screen Cancelled Screen 0 ros/5 flds - neg RhIG Candidate? Yes Rhogam Indicated Cancelled Med Orders - Current: Current Medications Acetaminophen (Acetaminophen 325 Mg Tab) 650 mg PO Q4H PRN PRN Reason: mild pain or fever Benzocaine/Menthol (Benzocaine/Menthol 20%-0.5% [address] 78 Gm Cannister) 0 gm TOP ASDIRECTED PRN PRN Reason: Perineal Comfort Measure Docusate Sodium (Docusate Sodium 100 Mg Cap) 100 mg PO BID PRN PRN Reason: Constipation Ibuprofen (Ibuprofen 600 Mg Tab) 600 mg PO Q6H PRN PRN Reason: Mild pain or fever Last Admin: 03/02/21 07:10 Dose: 600 mg Documented by: Tomeka Rodrigues (Tomeka Rodrigues Medicated Pads 40/Jar) 1 pad TOP ASDIRECTED PRN PRN Reason: Perineal Comfort Measure Discontinued Medications Diphenhydramine HCl (Diphenhydramine 50 Mg/Ml Sdv) 25 mg IVPUSH Q6H PRN PRN Reason: pruritis Ephedrine Sulfate (Ephedrine 50 Mg/Ml Sdv) 5 mg IVPUSH ASDIRECTED PRN PRN Reason: Hypotension Famotidine (Famotidine 20 Mg Tab) 20 mg PO Q12H PRN PRN Reason: Heartburn Fentanyl (Fentanyl 100 Mcg/2 Ml Sdv) 100 mcg EPIDUR Q3H PRN PRN Reason: Pain Last Admin: 03/01/21 09:49 Dose: 100 mcg Documented by: Fentanyl/Bupivacaine HCl (Bupivacaine/Fentanyl/Ns 100 Ml Bag) 100 ml EPIDUR ASD IRECTED PRN PRN Reason: Pain Last Admin: 03/01/21 09:49 Dose: 100 ml Documented by: Oxytocin/Lactated Ringer's (Pitocin In Lr 10 Units/1,000 Ml) 10 unit in 1,000 mls @ 500 mls/hr IV .CONTINUOUS LINNETTE Lactated Ringer's (Ringers, Lactated) 1,000 mls @ 40 mls/hr IV ASDIRECTED LINNETTE Last Admin: 03/01/21 09:49 Dose: 40 mls/hr Documented by: Oxytocin/Lactated Ringer's (Pitocin In Lr 10 Units/1,000 Ml) 10 unit in 1,000 mls @ 12 mls/hr IV TITRATE LINNETTE; Protocol Last Titration: 03/01/21 12:45 Dose: 12 munits/min, 72 mls/hr Documented by: Nalbuphine HCl (Nalbuphine 10 Mg/1 Ml Vial) 10 mg IVPUSH Q2H PRN PRN Reason: Pain Ondansetron HCl (Ondansetron 4 Mg/2 Ml Sdv) 4 mg IVPUSH Q4H PRN PRN Reason: Nausea/Vomiting Sodium Chloride (Sodium Chloride 0.9% 10 Ml Syringe) 10 ml FLUSH ASDIRECTED PRN PRN Reason: Keep Vein Open
--- NOTE | 2021-03-02 12:49 | PCM48HPAN ---
Post Anesthesia Note - EVALUATION WITHIN 48HRS OF ANESTHETIC Vital Signs in Normal Range: Yes Patient Participated in Evaluation: Yes Respiratory Function Stable: Yes Airway Patent: Yes Cardiovascular Function Stable: Yes Hydration Status Stable: Yes Pain Control Satisfactory: Yes Nausea and Vomiting Control Satisfactory: Yes Mental Status Recovered: Yes Vital Signs: Last Vital Signs Temp 97.9 F 03/02/21 07:27 Pulse 82 03/02/21 07:27 Resp 16 03/02/21 07:27 BP 98/55 L 03/02/21 07:27 Pulse Ox 100 03/02/21 07:27 - COMMENTS/OBSERVATIONS Free Text/Narrative:: Visited with patient regarding her epidural experience. Patient stated that it "worked great". Discussed signs and symptoms of infection, post-dural puncture headache, and post- depression. Patient denying any of those symptoms at this time. Encouraged patient to contact OB/Anesthesia if any of these symptoms develop even after the patient goes home so the patient may be treated accordingly if needed. Also discussed that the patient may experience some back pain from the epidural placement. Patient stated that she does have some mild discomfort in which she described as a "bruise". Encouraged patient to contact OB/Anesthesia if her back pain get worse. Patient verbalized understanding. No questions or concerns verbalized at this time. Irish Pierce, MEDIA RECONCILIATION SPECIALIST
[2021-03-02 15:06] VITALS: BP 115/71; PULSE 101
== END 2021-03-02 15:07 | disposition home or self-care (01) | DRG 560 ==
LOC: JD.OBCHECK 06:59 → JD.OB 07:00 → OBSVTOIN 14:12 → JD.OB 14:12
PROVIDERS: ADMIT Obstetrics & Gynecology; ATTEND Obstetrics & Gynecology
PROC: 10E0XZZ Delivery of Products of Conception, External Approach (ICD-10-PCS; principal; 2021-03-01)
PROC: 10907ZC Drainage of Amniotic Fluid, Therapeutic from Products of Conception, Via Natural or Artificial Opening (ICD-10-PCS; 2021-03-01)
PROC: 3E033VJ Introduction of Other Hormone into Peripheral Vein, Percutaneous Approach (ICD-10-PCS; 2021-03-01)
PROC: 3E0R3BZ Introduction of Anesthetic Agent into Spinal Canal, Percutaneous Approach (ICD-10-PCS; 2021-03-01)
PROC: 00HU33Z Insertion of Infusion Device into Spinal Canal, Percutaneous Approach (ICD-10-PCS; 2021-03-01)
PROC: 3E0334Z Introduction of Serum, Toxoid and Vaccine into Peripheral Vein, Percutaneous Approach (ICD-10-PCS; 2021-03-01)
DX: O99.344 Other mental disorders complicating childbirth (principal); Z37.0 Single live birth; F32.A Depression, unspecified; Z87.891 Personal history of nicotine dependence; Z20.822 Contact with and (suspected) exposure to COVID-19; O26.893 Other specified pregnancy related conditions, third trimester; Z67.11 Type A blood, Rh negative; Z3A.39 39 weeks gestation of pregnancy
CPT/HCPCS: 36415; 36430; 51702; 59025; 59409; 85027; 85461; 86592; 86850; 86900; 86901; A9270-GY; J2590; J2790; J3010; J3490; J7120; U0002

== ENCOUNTER 2022-11-03 08:02 | Day surgery (SDC) | payer BC ==
[2022-11-03 07:39] LABS: BASOPHILS ABSOLUTE AUTO 0.04 K/mm3 (0.01-0.08); BASOPHILS PERCENT AUTO 0.6 % (0.1-1.2); EOSINOPHILS ABSOLUTE AUTO 0.12 K/mm3 (0.04-0.36); EOSINOPHILS PERCENT AUTO 1.7 (0.7-5.8); HEMATOCRIT 41.5 % (34.1-44.9); IMMATURE GRAN ABSOLUTE AUTO 0.01 K/mm3 (0.00-0.10); IMMATURE GRAN PERCENT AUTO 0.1 % (<=1.0); LYMPHOCYTES ABSOLUTE AUTO 2.87 K/mm3 (1.18-3.74); LYMPHOCYTES PERCENT AUTO 39.6 % (19.3-51.7); MEAN CORPUSCULAR HEMOGLOBIN 28.3 pg (25.6-32.2); MEAN CORPUSCULAR HGB CONC 33.5 g/dl (32.2-35.5); MEAN CORPUSCULAR VOLUME 84.5 fl (79.4-94.8); MEAN PLATELET VOLUME 10.5 fl (9.4-12.3); MONOCYTES ABSOLUTE AUTO 0.52 K/mm3 (0.24-0.36); MONOCYTES PERCENT AUTO 7.2 % (4.7-12.5); NEUTROPHILS ABSOLUTE AUTO 3.68 K/mm3 (1.56-6.13); NEUTROPHILS PERCENT AUTO 50.8 % (34.0-71.1); PLATELET COUNT,PLT 247 K/mm3 (182-369); RED BLOOD CELL COUNT 4.91 M/mm3 (3.98-5.22); WHITE BLOOD CELL COUNT,WBC 7.24 K/mm3 (3.98-10.04)
[2022-11-03 07:43] LABS: HEMOGLOBIN 13.9 gm/dl (11.2-15.7)
[2022-11-03 07:45] LABS: ANION GAP 12.9 (5-15); CALCIUM 8.7 mg/dL (8.5-10.1); CREATININE 0.7 mg/dL (0.55-1.02); EST CRCL DRUG DOSING (CG) 117.85 mL/min; POTASSIUM,K 3.9 mEq/L (3.5-5.1)
[~2022-11-03 08:02] MED LIST changes: -Bupivacaine 0.25% 10 ML SDV ONE; +Bupivacaine 0.25%/EPINEPHrine 1:200,000 30 ML SDV ONE; +Bupivacaine 0.5% 30 ML SDV ONE; +HYDROmorphone 0.5 MG/0.5 ML Syringe IVPUSH PRN; +Lactated Ringers 1,000 ML IV SCH; +Lidocaine 1% 2 ML ONE; +Midazolam 1 MG/ML 2 ML SDV ONE; +Ondansetron 4 MG/2 ML SDV IVPUSH PRN; +Ondansetron 4 MG/2 ML SDV ONE; +Propofol 200 MG/20 ML SDV ONE; +Rocuronium 50 MG/5 ML Vial ONE; +Scopolamine 1.5 MG Transdermal Patch TRDERM PRN; +Sodium Chloride 0.9% 10 ML Syringe FLUSH PRN; +Sodium Chloride 0.9% 10 ML Syringe FLUSH SCH; +ceFAZolin 2 GM Vial ONE; +fentaNYL 100 MCG/2 ML SDV IVPUSH PRN; +fentaNYL 100 MCG/2 ML SDV ONE
[2022-11-03] MEDS ORDERED: Ketorolac 30 MG/ML SDV ONE (08:45)
[2022-11-03] MEDS ORDERED: HYDROmorphone 0.5 MG/0.5 ML Syringe ONE (08:45)
[2022-11-03] MEDS ORDERED: Rocuronium 50 MG/5 ML Vial ONE (08:46)
[2022-11-03] MEDS ORDERED: Sugammadex Sodium 200 MG/2 ML VIAL ONE (08:47)
[2022-11-03 11:03] VITALS: BP 101/64; PULSE 76
== END 2022-11-03 12:00 | disposition home or self-care (01) ==
LOC: JD.SDS 08:02
PROVIDERS: ATTEND Obstetrics & Gynecology
DX: N72 Inflammatory disease of cervix uteri (principal); N80.03 Adenomyosis of the uterus; N87.9 Dysplasia of cervix uteri, unspecified; K21.9 Gastro-esophageal reflux disease without esophagitis; F32.A Depression, unspecified; Z98.890 Other specified postprocedural states; Z87.891 Personal history of nicotine dependence; Z88.0 Allergy status to penicillin; Z88.8 Allergy status to other drugs, medicaments and biological substances; Z79.899 Other long term (current) drug therapy
CPT/HCPCS: 36415; 58552; 80048; 81025; 85025; 86850; 86900; 86901; A9270; J0690; J1170; J1885; J2250; J2405; J2704; J3010; J3490; J7120; 00944